=== PATIENT | female | born 1990 | race Caucasian/White ===

== ENCOUNTER → 2016-09-27 | Outpatient (CLI) | payer OTHER ==
--- NOTE | 2016-09-27 13:19 | DIAGNOSTIC IMAGING REPORT ---
CERVICAL SPINE 2 OR 3 VIEWS CLINICAL HISTORY: 26 years-old Female presenting with CERVICALGIA. TECHNIQUE: Lateral, frontal, and open-mouth odontoid views of the cervical spine were obtained. COMPARISON: None. FINDINGS: Straightening of normal cervical lordosis, likely positional. Vertebral bodies maintain normal height and alignment. Intervertebral disc spaces preserved. No radiographic evidence of fracture or subluxation. No prevertebral soft tissue swelling. No significant degenerative change. No predental interval widening. Lateral masses of C1 articulate normally with C2. Lung apices clear. IMPRESSION: Normal cervical spine. Electronically signed by: Lukas Denney M.D. 09/27/2016 1:18 PM Dictated Date/Time: 09/27/2016 1:17 PM
== END | disposition home or self-care (01) ==
LOC: C.RADBC 10:51
PROVIDERS: ATTEND Family Medicine
DX: M54.2 Cervicalgia (principal)

== ENCOUNTER → 2016-10-05 | Outpatient (CLI) | payer OTHER ==
--- NOTE | 2016-10-05 09:57 | DIAGNOSTIC IMAGING REPORT ---
PELVIC ULTRASOUND, TRANSABDOMINAL AND TRANSVAGINAL HISTORY: Pelvic pain. COMPARISON: None. FINDINGS: Uterus: 9.5 x 5.1 x 6.7 cm. No uterine masses. A few small nabothian cysts. Endometrial stripe: 7 mm in thickness. Right ovary: Normal in size and demonstrates normal color flow. A few small follicles/cysts. Left ovary: Normal in size and demonstrates normal color flow. A few small follicles/cysts. Miscellaneous:No pelvic free fluid. IMPRESSION: No significant abnormality identified within the pelvis. Electronically signed by: Pepito Kelly M.D. 10/05/2016 9:56 AM Dictated Date/Time: 10/05/2016 9:54 AM
--- NOTE | 2016-10-05 09:57 | DIAGNOSTIC IMAGING REPORT ---
ABDOMEN COMPLETE (US) CLINICAL HISTORY: 26 years-old Female presenting with pelvic pain, generalized abdominal pain. TECHNIQUE: Real-time grayscale and limited color Doppler ultrasound imaging of the abdomen was performed. COMPARISON: None. FINDINGS: Pancreas: Visualized portions of the pancreatic head and body normal. Liver: Mildly hyperechogenic parenchyma, although the right hemidiaphragm remains visible, likely indicating mild steatosis. Main portal vein patent with normal directional flow. Biliary: No intrahepatic biliary ductal dilatation. Common bile duct measures up to 4 mm in diameter. Gallbladder: Normal in appearance without evidence of gallstones, gallbladder wall thickening, or pericholecystic fluid. Spleen: Normal in echogenicity and size, measuring 10.9 cm in length. Kidneys: Normal in size and echogenicity. Right kidney measures 10.5 cm, and left kidney measures 10.8 cm. No hydronephrosis. Vasculature: Visualized portions of the IVC and abdominal aorta normal. Ascites: None. IMPRESSION: No evidence of cholelithiasis or biliary ductal dilatation. Suggestion of mild hepatic steatosis. Electronically signed by: Lukas Denney M.D. 10/05/2016 9:56 AM Dictated Date/Time: 10/05/2016 9:53 AM
== END | disposition home or self-care (01) ==
LOC: C.ULTRBC 08:55
PROVIDERS: ATTEND Family Medicine
DX: R10.2 Pelvic and perineal pain (principal); R10.84 Generalized abdominal pain

== ENCOUNTER → 2016-10-07 | Outpatient (CLI) | payer OTHER | END | disposition home or self-care (01) | LOC: C.PAPS 13:34 | PROVIDERS: ATTEND Family Medicine | DX: Z12.4 Encounter for screening for malignant neoplasm of cervix (principal) ==

== ENCOUNTER → 2016-10-07 | Outpatient (CLI) | payer OTHER ==
[2016-10-07 14:23] LABS: BASO % 0.4 %; BASO ABS # 0.02 K/uL (0-0.2); COMPLETE YES; EOS % 1.3 %; HEMATOCRIT 41.6 % (37-47); IG% 0.2 %; LYMPH % 33.5 %; LYMPH ABS # 1.57 K/uL (1.2-3.4); MEAN CELL VOLUME 91.4 fL (80-100); MEAN CORPUSCULAR HEMOGLOBIN 31.9 pg (25-34); MEAN CORPUSCULAR HGB CONC 34.9 g/dl (32-36); MEAN PLATELET VOLUME 12.8 fL (7.4-10.4); NEUT % 55.6 %; PLATELET COUNT 198 K/uL (130-400); RED BLOOD COUNT 4.55 M/uL (4.2-5.4); WHITE BLOOD COUNT 4.69 K/uL (4.8-10.8)
[2016-10-07 14:30] LABS: ALT/SGPT 13 U/L (12-78); AMYLASE 31 U/L (25-115); AST/SGOT 7 U/L (15-37); BLOOD UREA NITROGEN 17 mg/dl (7-18); BUN/CREATININE RATIO 27.4 (10-20); CALCIUM 9.2 mg/dl (8.5-10.1); CARBON DIOXIDE 30 mmol/L (21-32); CHLORIDE 106 mmol/L (98-107); CREATININE 0.62 mg/dl (0.60-1.20); GLUCOSE 90 mg/dl (70-99); POTASSIUM 4.4 mmol/L (3.5-5.1); SODIUM 141 mmol/L (136-145)
[2016-10-07 14:42] LABS: ALB/GLOB RATIO 1.5 (0.9-2); ALKALINE PHOSPHATASE 55 U/L (45-117)
== END | disposition home or self-care (01) ==
LOC: C.LABSPEC 13:39
PROVIDERS: ATTEND Family Medicine
DX: K76.0 Fatty (change of) liver, not elsewhere classified (principal); R10.84 Generalized abdominal pain

== ENCOUNTER → 2016-10-14 | Outpatient (CLI) | payer OTHER ==
--- NOTE | 2016-10-14 15:32 | MAMMOGRAPHY REPORT ---
ULTRASOUND OF BOTH BREASTS: 10/14/2016 CLINICAL HISTORY: The patient reports bilateral breast pain, which is predominantly involving the rig ht lateral breast and a portion of the left lateral breast. The patient denies any palpable lumps, n ipple discharge, or other complaints. She has a family history of breast cancer including paternal g randmother and paternal aunts and cousins. COMPARISON: No prior exams were available for comparison. TECHNIQUE: Real-time targeted ultrasound of both breasts was performed. FINDINGS: Real-time, high resolution targeted ultrasound was performed of the areas of pain pointed out by the patient, involving the right lateral breast from approximately 6:00 to 12:00, as well as t he left breast at approximately 3 to 4:00. Sonographically normal tissue is seen in these regions, w ithout evidence of a mass or other suspicious sonographic abnormality. IMPRESSION: ACR BI-RADS CATEGORY 1: NEGATIVE No suspicious sonographic abnormality at the sites of bilateral breast pain pointed out by the patien t. There is no sonographic evidence of malignancy. Recommend clinical follow-up. The patient was v erbally notified of the results. Elisabeth Lerner M.D. ah/:10/14/2016 10:21:49 Compound Machine Operator: Elisabeth Lerner MD, [facility] letter sent: Normal 1/2 BI-RADS Code: ACR BI-RADS Category 1: Negative
== END | disposition home or self-care (01) ==
LOC: C.MAMM 09:41
PROVIDERS: ATTEND Family Medicine
DX: N63 Unspecified lump in breast (principal)

== ENCOUNTER → 2016-12-26 | Outpatient (CLI) | payer OTHER ==
--- NOTE | 2016-12-26 14:51 | DIAGNOSTIC IMAGING REPORT ---
SOFT TISSUE NECK CLINICAL HISTORY: 26 years-old Female presenting with DYSPHAGIA. TECHNIQUE: Frontal and lateral views of the neck were obtained. COMPARISON: Correlation made to plain radiographs of the cervical spine from 09/27/2016. FINDINGS: No prevertebral soft tissue swelling. Soft tissues of the neck are unchanged since prior radiographs. Normal appearance of the epiglottis and aryepiglottic folds. Normal radiographic appearance of the airway. Cervical spine normal. Lung apices clear. IMPRESSION: Normal radiographs of the neck. Electronically signed by: Lukas Denney M.D. 12/26/2016 2:49 PM Dictated Date/Time: 12/26/2016 2:47 PM
== END | disposition home or self-care (01) ==
LOC: C.RADBC 13:43
PROVIDERS: ATTEND Family Medicine
DX: R13.10 Dysphagia, unspecified (principal)

== ENCOUNTER → 2016-12-29 | Outpatient (CLI) | payer OTHER ==
--- NOTE | 2016-12-29 09:42 | DIAGNOSTIC IMAGING REPORT ---
SOFT TISS HEAD/NECK-THYROID CLINICAL HISTORY: 26 years-old Female presenting with THYROIDITIS. TECHNIQUE: Real-time grayscale and color Doppler ultrasound imaging of the thyroid and base of the neck was performed. COMPARISON: None. FINDINGS: Right lobe: Normal echogenicity and echotexture. The right lobe of the thyroid measures 4.5 x 1.7 x 1.3 cm. No nodules. No parenchymal hyperemia. Left lobe: Normal echogenicity and echotexture. The left lobe of the thyroid measures 4.8 x 1.3 x 1.5 cm. No nodules. No parenchymal hyperemia. Isthmus: The isthmus measures 3 mm in thickness. No nodules. IMPRESSION: Normal thyroid ultrasound. Electronically signed by: Lukas Denney M.D. 12/29/2016 9:41 AM Dictated Date/Time: 12/29/2016 9:40 AM
== END | disposition home or self-care (01) ==
LOC: C.ULTR 09:13
PROVIDERS: ATTEND Family Medicine
DX: R13.19 Other dysphagia (principal); E06.9 Thyroiditis, unspecified

== ENCOUNTER → 2017-01-11 | Outpatient (CLI) | payer OTHER ==
--- NOTE | 2017-01-11 11:51 | DIAGNOSTIC IMAGING REPORT ---
LUMBAR SPINE 5 VIEWS CLINICAL HISTORY: Low back pain. FINDINGS: 5 views of the lumbar spine are obtained. No prior studies are available for comparison at the time of dictation. The skeletal structures are well mineralized. There is no radiographic evidence of fracture or malalignment. Vertebral body height and alignment are maintained. The transverse and spinous processes are intact. There is no evidence of spondylolysis. The intervertebral disc spaces are well-maintained. The visualized bony pelvis appears intact. There is a nonobstructed abdominal bowel gas pattern. There is minimal S-shaped thoracolumbar scoliosis. IMPRESSION: No acute bony abnormality is seen involving the lumbosacral spine. Electronically signed by: Abrahan Santo M.D. 01/11/2017 11:50 AM Dictated Date/Time: 01/11/2017 11:49 AM
[2017-01-11 14:00] LABS: C-REACTIVE PROTEIN < 0.29 mg/dl (0-0.29); FERRITIN 35.3 ng/ml (8.0-388.0); RHEUMATOID FACTOR < 10.0 U/mL (0-15)
[2017-01-11 14:24] LABS: LYME DISEASE AB IGG NEG (NEG)
[2017-01-11 14:25] LABS: LYME DISEASE AB IGM NEG (NEG)
== END | disposition home or self-care (01) ==
LOC: C.RADBC 10:39
PROVIDERS: ATTEND Family Medicine
DX: M54.5 Low back pain (principal); M25.50 Pain in unspecified joint; M62.81 Muscle weakness (generalized)

== ENCOUNTER 2017-02-15 04:09 | Emergency (ER) | payer OTHER ==
[~2017-02-15] VITALS: Ht 162.6 cm; Wt 74.5 kg
[2017-02-15 04:12] VITALS: TEMP 36.7; Ht 162.6 cm; Wt 74.5 kg
[2017-02-15] MEDS ORDERED: SODIUM CHLORIDE 0.9% 1000ML 1,000 ML IV STA ×2 (04:24→05:25)
[2017-02-15] MEDS ORDERED: KETOROLAC TROMETHAMINE 30 MG/ML VIAL IV STA (04:24)
[2017-02-15] MEDS ORDERED: ONDANSETRON INJ 2 MG/ML 2 ML VIAL IV STA ×2 (04:24→05:25)
--- NOTE | 2017-02-15 04:26 | EMERGENCY ROOM VISIT NOTE ---
History Report prepared by Nick: Swapnil Carrasquillo Under the Supervision of: Dr. Ambrocio Narvaez M.D. First contact with patient: 04:17 Chief Complaint: VOMITING Stated Complaint: VOMITING, DIARRHEA History of Present Illness The patient is a 26 year old female who presents to the Emergency Room with complaints of a persistent illness that started prior to arrival today. She says that she has been having episodes of diarrhea and vomiting, in addition to sharp abdominal pain around her belly button. The patient denies any fevers or urinary symptoms. She states that both her son and have had similar symptoms over the past few days. She says that her primary care doctor told her that she has a small hernia. The patient drove here. 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 Review of Systems See HPI for pertinent positives & negatives. A total of 10 systems reviewed and were otherwise negative. Past Medical & Surgical Medical Problems: (1) No chronic problems Family History No pertinent family history Social History Smoking Status: Never Smoker Marital Status: Housing Status: lives with family Occupation Status: unemployed Current/Historical Medications No Active Prescriptions or Reported Meds Allergies Coded Allergies: Azithromycin (Verified Allergy, Unknown, vomiting, 02/15/17) Physical Exam Vital Signs Date Time Temp Pulse Resp B/P (MAP) Pulse Ox O2 Delivery O2 Flow Rate FiO2 02/15/17 07:40 92 16 110/56 96 02/15/17 06:05 93 16 101/47 97 Room Air 02/15/17 04:12 36.7 126 20 126/80 99 Room Air Physical Exam GENERAL: Patient is uncomfortable appearing and in moderate distress. HEENT: No acute trauma, normocephalic atraumatic, mucous membranes moist, no nasal congestion, no scleral icterus. NECK: No stridor, no adenopathy, no meningismus, trachea is midline. LUNGS: No dyspnea. Clear to auscultation and equal bilaterally. No wheeze, no rhonchi. HEART: Tachycardic rate and regular rhythm. No murmurs, rubs, gallops appreciated. ABDOMEN: Vague periumbilical tenderness on examination. Soft, bowel sounds positive, no masses appreciated, no peritonitis. BACK: No midline tenderness, no CVA tenderness EXTREMITIES: Normal motion all extremities, no cyanosis, no edema. NEUROLOGIC: Alert and oriented, no acute motor or sensory deficits, no focal weakness, cranial nerves grossly intact. SKIN: No rash, no jaundice, no diaphoresis. Medical Decision & Procedures Laboratory Results 02/15/17 04:45 Red Blood Count 4.69, Mean Corpuscular Volume 91.3, Mean Corpuscular Hemoglobin 32.4, Mean Corpuscular Hemoglobin Concent 35.5, Mean Platelet Volume 12.1, Neutrophils (%) (Auto) 87.9, Lymphocytes (%) (Auto) 6.7, Monocytes (%) (Auto) 4.8, Eosinophils (%) (Auto) 0.2, Basophils (%) (Auto) 0.1, Neutrophils # (Auto) 8.65, Lymphocytes # (Auto) 0.66, Monocytes # (Auto) 0.47, Eosinophils # (Auto) 0.02, Basophils # (Auto) 0.01 02/15/17 04:45 Test 02/15/17 04:45 White Blood Count 9.84 K/uL (4.8-10.8) Red Blood Count 4.69 M/uL (4.2-5.4) Hemoglobin 15.2 g/dL (12.0-16.0) Hematocrit 42.8 % (37-47) Mean Corpuscular Volume 91.3 fL (80-100) Mean Corpuscular Hemoglobin 32.4 pg (25-34) Mean Corpuscular Hemoglobin Concent 35.5 g/dl (32-36) Platelet Count 172 K/uL (130-400) Mean Platelet Volume 12.1 fL (7.4-10.4) Neutrophils (%) (Auto) 87.9 % Lymphocytes (%) (Auto) 6.7 % Monocytes (%) (Auto) 4.8 % Eosinophils (%) (Auto) 0.2 % Basophils (%) (Auto) 0.1 % Neutrophils # (Auto) 8.65 K/uL (1.4-6.5) Lymphocytes # (Auto) 0.66 K/uL (1.2-3.4) Monocytes # (Auto) 0.47 K/uL (0.11-0.59) Eosinophils # (Auto) 0.02 K/uL (0-0.5) Basophils # (Auto) 0.01 K/uL (0-0.2) RDW Standard Deviation 41.6 fL (36.4-46.3) RDW Coefficient of Variation 12.6 % (11.5-14.5) Immature Granulocyte % (Auto) 0.3 % Immature Granulocyte # (Auto) 0.03 K/uL (0.00-0.02) Urine Color DK YELLOW Urine Appearance CLOUDY (CLEAR) Urine pH 5.0 (4.5-7.5) Urine Specific Rudolph 1.036 (1.000-1.030) Urine Protein NEG (NEG) Urine Glucose (UA) NEG (NEG) Urine Ketones 3+ (NEG) Urine Occult Blood NEG (NEG) Urine Nitrite NEG (NEG) Urine Bilirubin NEG (NEG) Urine Urobilinogen NEG (NEG) Urine Leukocyte Esterase TRACE (NEG) Urine WBC (Auto) 1-5 /hpf (0-5) Urine RBC (Auto) 0-4 /hpf (0-4) Urine Hyaline Casts (Auto) 1-5 /lpf (0-5) Urine Epithelial Cells (Auto) >30 /lpf (0-5) Urine Bacteria (Auto) 1+ (NEG) Urine Pathogenic Casts /lpf (0) Urine Mucus PRESENT (NONE PRSENT) Urine Yeast (Auto) (NONE PRSENT) Urine Test NEG (NEG) Anion Gap 8.0 mmol/L (3-11) Est Creatinine Clear Calc Drug Dose 119.4 ml/min Estimated GFR () 137.6 Estimated GFR (Non- 118.7 BUN/Creatinine Ratio 32.3 (10-20) Calcium Level 8.9 mg/dl (8.5-10.1) Total Bilirubin 1.2 mg/dl (0.2-1) Direct Bilirubin 0.2 mg/dl (0-0.2) Aspartate Amino Transf (AST/SGOT) 9 U/L (15-37) Alanine Aminotransferase (ALT/SGPT) 16 U/L (12-78) Alkaline Phosphatase 63 U/L (45-117) Total Protein 7.7 gm/dl (6.4-8.2) Albumin 4.5 gm/dl (3.4-5.0) Lipase 105 U/L (73-393) Laboratory results as reviewed by me. Medications Administered Medications (Trade) Dose Ordered Sig/Carlos Route Start Time Stop Time Status Last Admin Dose Admin Sodium Chloride 1,000 ml @ 999 mls/hr Q1H1M STAT IV 02/15/17 04:24 02/15/17 05:24 DC 02/15/17 04:24 999 MLS/HR Ketorolac Tromethamine (Toradol Inj) 30 mg NOW STAT IV 02/15/17 04:24 02/15/17 04:25 DC 02/15/17 04:53 30 MG Ondansetron HCl (Zofran Inj) 4 mg NOW STAT IV 02/15/17 04:24 02/15/17 04:25 DC 02/15/17 04:54 4 MG Sodium Chloride 1,000 ml @ 999 mls/hr Q1H1M STAT IV 02/15/17 05:25 02/15/17 06:25 DC 02/15/17 06:05 999 MLS/HR Ondansetron HCl (Zofran Inj) 4 mg NOW STAT IV 02/15/17 05:25 02/15/17 05:26 DC 02/15/17 06:04 4 MG Promethazine HCl (Phenergan 25MG Home Pack) 1 homepack UD ONCE PO 02/15/17 07:00 02/15/17 07:01 DC 02/15/17 07:37 1 HOMEPACK Ondansetron HCl (ZOFRAN ODT 4MG Home Pack) 1 homepack UD ONCE PO 02/15/17 07:00 02/15/17 07:01 DC 02/15/17 07:37 1 HOMEPACK ED Course 0419: The patient was evaluated in room B10. A complete history and physical exam was performed. 0525: I reevaluated the patient and her pain has improved but she is still feeling somewhat nauseous. 0700: Reevaluated the patient and she is resting. Discussed results and discharge instructions: she verbalized understanding and agreement. The patient is ready for discharge. Medical Decision Differential: Gastroenteritis, Food Borne, Esophageal Perforation, , Electrolyte Abnormality, Dehydration, Intraabdominal Infection, UTI/ Pyelonephritis, Bowel Obstruction, Biliary Pathology, amongst other pathology entertained. 26 yr old female with multiple family members who have similar GI symptoms arrives after onset of nausea, vomiting, diarrhea and milad-umbilical discomfort. Tachycardic and dehydrated on exam/arrival though abdominal exam not consistent with surgical abdomen. Vastly improved with fluids, zofran x 2 and toradol. She is comfortable and was able to sleep. Will send with nausea meds. Aware symptoms requiring RTED. Medication Reconcilliation Current Medication List: was personally reviewed by me Blood Pressure Screening Patient's blood pressure: Normal blood pressure Impression Primary Impression: Nausea, vomiting, and diarrhea Scribe Attestation The scribe's documentation has been prepared under my direction and personally reviewed by me in its entirety. I confirm that the note above accurately reflects all work, treatment, procedures, and medical decision making performed by me. Departure Information Dispostion Home / Self-Care Prescriptions No Active Prescriptions or Reported Meds Referrals No Doctor, Assigned (PCP) Patient Instructions ED Gastroenteritis Viral, My [facility]
[2017-02-15 04:53] LABS: BASO % 0.1 %; BASO ABS # 0.01 K/uL (0-0.2); EOS % 0.2 %; EOS ABS # 0.02 K/uL (0-0.5); HEMATOCRIT 42.8 % (37-47); HEMOGLOBIN 15.2 g/dL (12.0-16.0); IG# 0.03 K/uL (0.00-0.02); LYMPH % 6.7 %; LYMPH ABS # 0.66 K/uL (1.2-3.4); MEAN CELL VOLUME 91.3 fL (80-100); MEAN CORPUSCULAR HEMOGLOBIN 32.4 pg (25-34); MEAN CORPUSCULAR HGB CONC 35.5 g/dl (32-36); MEAN PLATELET VOLUME 12.1 fL (7.4-10.4); MONO % 4.8 %; MONO ABS # 0.47 K/uL (0.11-0.59); NEUT % 87.9 %; NEUT ABS # 8.65 K/uL (1.4-6.5); PLATELET COUNT 172 K/uL (130-400); RED CELL DISTRIBUTION WIDTH CV 12.6 % (11.5-14.5); RED CELL DISTRIBUTION WIDTH SD 41.6 fL (36.4-46.3); WHITE BLOOD COUNT 9.84 K/uL (4.8-10.8)
[2017-02-15 05:12] LABS: ALBUMIN 4.5 gm/dl (3.4-5.0); CALCIUM 8.9 mg/dl (8.5-10.1); CREATININE 0.7 mg/dl (0.60-1.20); POTASSIUM 4.1 mmol/L (3.5-5.1)
[2017-02-15 05:15] LABS: TOTAL PROTEIN 7.7 gm/dl (6.4-8.2)
[2017-02-15] MEDS ORDERED: ONDANSETRON HOME PACK 4MG OD TAB PO ONE (07:00)
[2017-02-15] MEDS ORDERED: PHENERGAN 25MG HOMEPACK PO ONE (07:00)
[2017-02-15 07:40] VITALS: BP 110/56; PULSE 92; O2SAT 96
== END 2017-02-15 07:52 | disposition home or self-care (01) ==
LOC: C.EDB 04:11
DX: R11.2 Nausea with vomiting, unspecified (principal); R19.7 Diarrhea, unspecified